=== PATIENT | female | born 1955 | race Caucasian/White ===

== ENCOUNTER 2018-06-21 07:03 | Observation (INO) | payer OTHER ==
[2018-06-21] MEDS ORDERED: ceFAZolin 2 GM/DEXTROSE 100 ML IV ONE (07:49)
[2018-06-21] MEDS ORDERED: LR 1,000 ML IV ONE (07:49)
--- NOTE | 2018-06-21 07:58 | PDHPUP ---
History & Physical Update H&P update statement: This history and physical update is based on an assessment of the patient which was completed after admission or registration (within 24 hours), but prior to the surgery/procedure. H&P update: H&P reviewed & patient examined, no change in patient's condition since H&P completed
[2018-06-21] MEDS ORDERED: ceFAZolin 3 GM in D5W 100 ML IV ONE (08:00)
[2018-06-21] MEDS ORDERED: BUPIVACAINE 0.5% 30 ML SDV ONE (08:37)
[2018-06-21] MEDS ORDERED: THROMBIN (BOVINE) 20,000 UNIT SPRAY TP ONE (08:37)
[2018-06-21] MEDS ORDERED: MIDAZOLAM 2 MG/2 ML VIAL IVP ONE (09:43)
--- NOTE | 2018-06-21 09:43 | PDANEPAE ---
ANE History of Present Illness L breast Ca, here for mastectomy on L ANE Past Medical History - Cardiovascular History Hx Hypertension: No Hx Arrhythmias: No Hx Chest Pain: No Hx Coronary Artery / Peripheral Vascular Disease: No Hx CHF / Valvular Disease: No Hx Palpitations: No - Pulmonary History Hx COPD: No Hx Asthma/Reactive Airway Disease: No Hx Recent Upper Respiratory Infection: No Hx Oxygen in Use at Home: No Hx Sleep Apnea: No Sleep Apnea Screening Result - Last Documented: Positive Pulmonary History Comment: STACIA triggers only - Neurologic History Hx Cerebrovascular Accident: No Hx Seizures: No Hx Dementia: No - Endocrine History Hx Diabetes: No - Renal History Hx Renal Disorders: No - Liver History Hx Hepatic Disorders: No - Neurological & Psychiatric Hx Hx Neurological and Psychiatric Disorders: No - Cancer History Hx Cancer: Yes Cancer History Comment: Breast CA - Congenital Disorder History Hx Congenital Disorders: No - GI History Hx Gastrointestinal Disorders: No - Other Health History Other Health History: arthritis in left knee. factor v leiden - Chronic Pain History Chronic Pain: No - Surgical History Prior Surgeries: fallipoian tube unblocked w/IVF treatments ANE Review of Systems Review of Systems: - Exercise capacity METS (RN): 4 METS ANE Patient History - Allergies Allergies/Adverse Reactions: Penicillins Allergy (Verified 06/13/18 10:59) Rash - Home Medications Home Medications: Acetamn/Diphenhydramine 500/25 [Tylenol PM (*)] 1 each PO HS PRN 06/13/18 [Last Taken 06/20/18] Herbals/Supplements -Info Only 1 ea PO DAILY 06/13/18 [Last Taken 06/13/18] Horton-3 Fatty Acids [Fish Oil 1000 mg (*)] 1,000 mg PO DAILY 06/13/18 [Last Taken 06/13/18] - NPO status NPO Since - Liquids (Date): 06/21/18 NPO Since - Liquids (Time): 00:00 NPO Since - Solids (Date): 06/20/18 NPO Since - Solids (Time): 22:00 - Smoking Hx Smoking Status: Never smoked - Family Anes Hx Family Hx Anesthesia Complications: none ANE Labs/Vital Signs - Vital Signs Blood Pressure: 152/109 Heart Rate: 77 Respiratory Rate: 18 O2 Sat (%): 94 Height: 168.91 cm Weight: 140.16 kg ANE Physical Exam - Airway Neck exam: FROM Mallampati Score: Class 3 Mouth exam: normal dental/mouth exam - Pulmonary Pulmonary: no respiratory distress - Cardiovascular Cardiovascular: regular rate and rhythym - ASA Status ASA Status: II ANE Anesthesia Plan Anesthesia Plan: general endotracheal anesthesia Total IV Anesthesia: No
[2018-06-21] MEDS ORDERED: MIDAZOLAM 2 MG/2 ML VIAL ONE (09:49)
[2018-06-21] MEDS ORDERED: ROCURONIUM 50 MG/5 ML VIAL ONE (09:50)
[2018-06-21] MEDS ORDERED: LIDOCAINE 2% 5 ML SDV ONE (09:50)
[2018-06-21] MEDS ORDERED: fentaNYL 250 MCG/5 ML INJ ONE (09:50)
[2018-06-21] MEDS ORDERED: fentaNYL 100 MCG/2 ML INJ ONE ×3 (09:50→12:57)
[2018-06-21] MEDS ORDERED: PROPOFOL 200 MG/20 ML VIAL ONE (09:51)
[2018-06-21] MEDS ORDERED: ACETAMINOPHEN 500 MG TAB PO PRN (11:18)
[2018-06-21] MEDS ORDERED: HYDROmorphONE/DILAUDID 2 MG/ML INJ IVP PRN (11:18)
[2018-06-21] MEDS ORDERED: MEPERIDINE 25 MG/0.5 ML AMP IVP PRN (11:18)
[2018-06-21] MEDS ORDERED: PROMETHAZINE HCL 25 MG/ML INJ IVP PRN (11:18)
[2018-06-21] MEDS ORDERED: oxyCODONE IR 5 MG TAB PO PRN (11:18)
[2018-06-21] MEDS ORDERED: NALOXONE HCL 0.4 MG/ML INJ IVP PRN (11:18)
--- NOTE | 2018-06-21 11:26 | POSTOPPROG ---
Post Op Note Date of Operation: 06/21/18 Surgeon: Ching Tovar Mobile Application Tester: kristi Anesthesiologist: alisa Anesthesia: GET(General Endotracheal) Pre-op Diagnosis: L breast cancer Post-op Diagnosis: same Indication: 63 yo with left breast cancer Procedure: l mastectomy l sln Findings: no unusual Inf/Abcess present in the surg proc area at time of surgery?: No Depth: Superfical (Skin SQ) EBL: 50-100 Specimen(s): L breast L sln l axillary contents
[2018-06-21] MEDS ORDERED: ONDANSETRON 4 MG/2 ML VIAL IVP PRN (11:27)
[2018-06-21] MEDS ORDERED: traMADol 50 MG TAB PO PRN (11:27)
[2018-06-21] MEDS ORDERED: ACETAMINOPHEN 325 MG TAB PO PRN (11:27)
[2018-06-21] MEDS ORDERED: ONDANSETRON DISINTEGRATING 4 MG TAB PO PRN (11:27)
[2018-06-21] MEDS ORDERED: HYDROCODONE/APAP 5/325 TAB PO PRN (11:27)
[2018-06-21] MEDS ORDERED: ACETAMN/DIPHENHYDRAMINE 500/25MG TAB PO PRN (11:28)
--- NOTE | 2018-06-21 11:51 | GOP ---
DATE OF OPERATION: 06/21/2018 SURGEON: Ching Tovar MD GROUP LEADER WAFER POLISHING: Serene Javier PA-C. ANESTHESIA: Ciarra Luna, /General. PREOPERATIVE DIAGNOSIS: Multifocal left breast cancer. POSTOPERATIVE DIAGNOSIS: Multifocal left breast cancer. PROCEDURE PERFORMED: Left breast mastectomy, left sentinel lymph node. FINDINGS: Negative nodes SPECIMENS: Left breast short superior, long lateral, left sentinel lymph node, left axillary contents. ESTIMATED BLOOD LOSS: 100 cc. INDICATIONS: The patient is a 63-year-old woman with multifocal left breast cancer. She also had MRI findings on the right that appeared similar to the left. She underwent 2 biopsies at an outside institution, which were negative. We had a long discussion about the possibility of breast cancer also being in the right breast with biopsy error. She would like to proceed with left breast mastectomy. DESCRIPTION OF PROCEDURE: Patient was brought into the operating room, supine on the table, and general anesthesia was administered. Her left chest and axilla were prepped and draped in the usual sterile fashion. I made an ellipse over her breast. I created superior and inferior skin flaps and dissected down to the level of the pectoralis. I attempted to save the pectoralis fascia, although in some areas, I was unable to do so. The breast was marked short superior, long lateral, and sent to Pathology, fresh. I then used the gamma probe to identify the sentinel lymph nodes. They were high behind the pectoralis muscle. I excised 2 of these. I returned the probe to the cavity which was quiet. I palpated and felt an additional couple of palpable nodes. I excised these. They were sent to frozen. Hemostasis achieved in the wound. A 15 round silicone drain was placed and sutured in place with 3-0 nylon. Wound closed with 3-0 Vicryl followed by 4-0 Monocryl. Mastisol, Steri-Strips, and a sterile dressing applied. She was awakened in the operating room, extubated, transferred to PACU in stable condition. /[id number]/MODL MTDD
[2018-06-21] MEDS: fentaNYL 100 MCG/2 ML INJ IVP PRN ×3 (11:53→13:00)
[2018-06-21] MEDS ORDERED: oxyCODONE IR 5 MG TAB ONE (13:53)
--- NOTE | 2018-06-21 15:31 | POSTANESTH ---
Post Anesthetic Evaluation Cardiovascular Status: Normal, Stable Respiratory Status: Normal, Stable Level of Consciousness/Mental Status: Can Participate in Eval Pain Control: Adequate, Prn Tx Ordered Nausea/Vomiting Control: Adequate, Prn Tx Ordered Complications Possibly Related to Anesthesia: None Noted (Tearful, similar to pre-op and no specific complaints)
[2018-06-21] MEDS: IBUPROFEN 600 MG TAB PO SCH ×2 (19:06→19:57)
[2018-06-21] MEDS: ENOXAPARIN 40 MG/0.4 ML SYR SC SCH (19:58)
[2018-06-22] MEDS: IBUPROFEN 600 MG TAB PO SCH ×4 (05:49→20:25)
[2018-06-22] MEDS: ENOXAPARIN 40 MG/0.4 ML SYR SC SCH ×2 (08:45→20:25)
--- NOTE | 2018-06-22 10:26 | SOAPPROG ---
SOAP Progress Note Assessment/Plan: Assessment: POD # 1 s/p L mastectomy with L SLN Doing very well Pain controlled Work with PT Work on learning drain care Lives independently so needs one more day to be stable drain was a bit sanguinous - on Lovenox for Factor V - need to monitor one more day to make sure no delayed hematoma - high risk S: Pain controlled O: sitting in bed ctab rrr Some ecchymosis LALA and by drain site No obvious hematoma I emptied 50 cc serosanguinous blood Plan: 06/22/18 10 Objective: Vital Signs Temp Pulse Resp BP Pulse Ox 36.9 C 60 16 131/70 H 95 06/22/18 08:00 06/22/18 08:00 06/22/18 08:00 06/22/18 08:00 06/22/18 08:00 06/21/18 06/22/18 06/23/18 05:59 05:59 05:59 Intake Total 1550 Output Total 1070 1075 Balance 480 -1075 ICD10 Worksheet Patient Problems: Problems Problem Status Onset Breast cancer in female Acute - ICD10 Problem Qualifiers (1) Breast cancer in female Qualifiers: Breast location: overlapping sites of breast Estrogen receptor status: positive Laterality: left Qualified Code(s): C50.812 - Malignant neoplasm of overlapping sites of left female breast; Z17.0 - Estrogen receptor positive status [ER+]; Z17.0 - Estrogen receptor positive status [ER+]
[2018-06-23] MEDS: IBUPROFEN 600 MG TAB PO SCH (05:03)
[2018-06-23 08:24] VITALS: BP 118/72
--- NOTE | 2018-06-23 08:58 | SOAPPROG ---
SOAP Progress Note Assessment/Plan: Assessment: POD # 2 s/p L mastectomy with L SLN Doing very well Pain controlled Work with PT Work on learning drain care Lives independently so needs one more day to be stable ambulatory with Factor V. Per heme onc, no lovenox needed S: Pain controlled. More mobile today O: sitting in bed ctab rrr Some ecchymosis LALA and by drain site - not expanding No obvious hematoma Plan: 06/22/18 10 06/23/18 08:57 Objective: Vital Signs Temp Pulse Resp BP Pulse Ox 36.8 C 77 16 118/72 93 06/23/18 08:23 06/23/18 08:23 06/23/18 08:23 06/23/18 08:23 06/23/18 08:23 06/22/18 06/23/18 06/24/18 05:59 05:59 05:59 Intake Total 1550 500 Output Total 1070 1185 60 Balance 480 -685 -60 ICD10 Worksheet Patient Problems: Problems Problem Status Onset Breast cancer in female Acute - ICD10 Problem Qualifiers (1) Breast cancer in female
[2018-06-23] MEDS: ENOXAPARIN 40 MG/0.4 ML SYR SC SCH (09:31)
--- NOTE | 2018-06-23 09:31 | ASMTLACE ---
LACE Length of stay for Answers: 2 days current admission Acuity / Level of Answers: No Care: Did the patient have an inpatient admission? Comorbidities - select Answers: Any tumor (including all that apply lymphoma or leukemia) Score: 4 Date Signed: 06/23/2018 09:31 AM Electronically Signed By:Mariana Palma RN
--- NOTE | 2018-06-23 09:34 | ASMTCMCOM ---
CM Note CM Note Notes: Patient chart reviewed. 63 year old female s/p left mastectomy. Medically cleared to discharge home. No needs identified. CM available should needs arise. Plan: Dc to home. Date Signed: 06/23/2018 09:34 AM Electronically Signed By:Mariana Palma RN
== END 2018-06-23 10:52 | disposition home or self-care (01) ==
LOC: F3E 07:03 → F1N 14:15
PROVIDERS: ADMIT Surgery; ATTEND Surgery
PROC: 0HTU0ZZ Resection of Left Breast, Open Approach (ICD-10-PCS; principal; 2018-06-21 10:30)
PROC: 07B60ZX Excision of Left Axillary Lymphatic, Open Approach, Diagnostic (ICD-10-PCS; principal; 2018-06-21 10:30)
PROC: 3E0W3KZ Introduction of Other Diagnostic Substance into Lymphatics, Percutaneous Approach (ICD-10-PCS; 2018-06-21 10:30)
DX: C50.412 Malignant neoplasm of upper-outer quadrant of left female breast (principal); Z17.0 Estrogen receptor positive status [ER+]; D68.2 Hereditary deficiency of other clotting factors
CPT/HCPCS: 19307; 78195; 97161; 97166; A9520; G0378; J0690; J1650; J2250; J2704; J3010